=== PATIENT | male | born 1990 | race Caucasian/White ===

== ENCOUNTER 2019-04-02 07:38 | Emergency (ER) | payer BC ==
--- NOTE | 2019-04-02 08:41 | EDM.PDOC ---
ED HPI GENERAL MEDICAL PROBLEM - General Chief Complaint: ENT Problem Stated Complaint: L EYE IRRITATION Time Seen by Provider: 04/02/19 15:40 Source of Information: Reports: Patient History Limitations: Reports: No Limitations - History of Present Illness INITIAL COMMENTS - FREE TEXT/NARRATIVE: Patient presented to the ED because of left eye irritation. He woke up with left eye pain, he doesn't know if he scratched it or not while asleep. there is no recent trauma or injury to his eye. - Related Data Allergies Allergy/AdvReac Type Severity Reaction Status Date / Time No Known Allergies Allergy Verified 04/02/19 08:03 Home Meds: Home Meds Neomycin/Polymyxin B Sulf/HC [Pagshgjh-Quro-IN Eye Drops] 7.5 ml OP QID #1 drops.susp 04/02/19 [Rx] Past Medical History - Past Health History Medical/Surgical History: Denies Medical/Surgical History Social & Family History - Family History Family Medical History: Noncontributory - Tobacco Use Smoking Status *Q: Never Smoker - Caffeine Use Caffeine Use: Reports: Coffee - Recreational Drug Use Recreational Drug Use: No ED ROS ENT - Review of Systems Review Of Systems: See Below Constitutional: Reports: No Symptoms HEENT: Reports: Eye Pain Respiratory: Reports: No Symptoms Cardiovascular: Reports: No Symptoms Endocrine: Reports: No Symptoms GI/Abdominal: Reports: No Symptoms : Reports: No Symptoms Musculoskeletal: Reports: No Symptoms Skin: Reports: No Symptoms Neurological: Reports: No Symptoms Psychiatric: Reports: No Symptoms ED EXAM, ENT - Physical Exam Exam: See Below Exam Limited By: No Limitations General Appearance: Alert Eye Exam: Bilateral Eye: Conjunctival Injection (corneal abrasion at 6 oclock position) Ears: Normal External Exam, Normal Canal, Hearing Grossly Normal Nose: Normal Inspection, Normal Mucousa, No Blood Mouth/Throat: Normal Inspection, Normal Gums, Normal Lips Head: Atraumatic Neck: Normal Inspection Respiratory/Chest: No Respiratory Distress, Lungs Clear, Normal Breath Sounds, No Accessory Muscle Use Cardiovascular: Normal Peripheral Pulses GI/Abdominal: Normal Bowel Sounds Extremities: Normal Inspection Neurological: Alert, Oriented Course - Vital Signs Text/Narrative:: The left eye was anesthetized with a topical tetracaine eyedrops and stained with fluorescein stain. There is increase uptake at the 6 0'clock position of the sclera and a tiny abrasion at the cornea. Patiwnt tolwrated the procedure well without any complication. Last Recorded V/S: Last Vital Signs Temp 36.2 C 04/02/19 07:38 Pulse 71 04/02/19 07:38 Resp 18 04/02/19 07:38 BP 133/78 04/02/19 07:38 Pulse Ox 97 04/02/19 07:38 Departure - Departure Time of Disposition: 08:35 Disposition: Home, Self-Care 01 Condition: Good Clinical Impression: Corneal abrasion - Discharge Information Prescriptions: Neomycin/Polymyxin B Sulf/HC [Mmoluwnz-Anhx-OL Eye Drops] 7.5 ml OP QID #1 drops.susp Instructions: Eye Foreign Body, Qsly-ul-[id number], Corneal Abrasion, Qred-ed-Sise Forms: ED Department Discharge Additional Instructions: please read discharge instructions on corneal abrasion and foreign body do not rub your eyes, it can cause swelling and pain apply ice if your eye gets irritated polymixin/HC eye drops, 2 drops to the lefy eye 4 times daily for 7 days follow up if symptoms persist Sepsis Event Note - Evaluation Sepsis Screening Result: No Definite Risk - Focused Exam Vital Signs: Vital Signs Temp Pulse Resp BP Pulse Ox 04/02/19 07:38 36.2 C 71 18 133/78 97 Date Exam was Performed: 04/02/19 Time Exam was Performed: 15:39
== END 2019-04-02 08:51 | disposition home or self-care (01) ==
LOC: FB.ED 07:38
DX: S05.02XA Injury of conjunctiva and corneal abrasion without foreign body, left eye, initial encounter (principal); X58.XXXA Exposure to other specified factors, initial encounter
CPT/HCPCS: 99283